=== PATIENT | female | born 2000 | race Hispanic/Latino ===

== ENCOUNTER 2024-01-30 16:28 | Emergency (ER) | payer MEDICARE ==
[~2024-01-30] VITALS: Ht 157.5 cm; Wt 59.0 kg
[2024-01-30 16:45] VITALS: PULSE 86; RESP 14; TEMP 97.6; O2SAT 100
[2024-01-30] MEDS ORDERED: HYDROXYZINE HCL 25 MG TAB PO STA (17:22)
[2024-01-30] MEDS ORDERED: HYDROXYZINE HCL25 MG PO (17:24)
[2024-01-30 17:28] LABS: CLARITY,URINE CLEAR (CLEAR); COLOR,URINE YELLOW (YELLOW)
[2024-01-30 17:29] LABS: BILIRUBIN,URINE NEGATIVE (NEGATIVE); GLUCOSE, URINE NEGATIVE (NEGATIVE); KETONES,URINE NEGATIVE (NEGATIVE); LEUKOCYTE ESTERASE ,URINE NEGATIVE (NEGATIVE); NITRITE,URINE NEGATIVE (NEGATIVE); PH,URINE 7.5 (5 - 7); PROTEIN,URINE DIPSTICK NEGATIVE (NEGATIVE); URINE UROBILINOGEN 0.2 mg/dL (0.2 - 1)
[2024-01-30 17:34] LABS: BACTERIA,URINE FEW /HPF; RBC,URINE 0-5 /HPF (0-5); WBC,URINE (MAN) 0-5 /HPF (0-5)
[2024-01-30 17:35] LABS: EPITHELIAL CELLS,URINE MODERATE /LPF
[2024-01-30 17:37] LABS: PREGNANCY TEST, URINE POSITIVE (NEGATIVE)
== END 2024-01-30 17:51 | disposition home or self-care (01) ==
LOC: ER 16:51
DX: L29.9 Pruritus, unspecified (principal); R30.0 Dysuria; R35.0 Frequency of micturition; Z32.01 Encounter for pregnancy test, result positive
CPT/HCPCS: 81001; 81025; 99282